=== PATIENT | male | born 1965 | race Caucasian/White ===

== ENCOUNTER 2018-04-13 02:38 | Inpatient (IN) | payer OTHER, MEDICAID ==
[~2018-04-13] VITALS: Ht 182.9 cm; Wt 102.2 kg
[~2018-04-13 02:38] MED LIST: ATOR20TA PO; CARV3.1212 PO; LISI-170 PO; TICA90TA PO
[2018-04-13] MEDS ORDERED: ASPI-13 PO (03:20)
[2018-04-13 03:24] LABS: BASOPHILS # (AUTO) 0.04 x10^3/uL (0-0.1); BASOPHILS % (AUTO) 0 % (0-1); EOSINOPHILS # (AUTO) 0.28 x10^3/uL (0-0.4); EOSINOPHILS % (AUTO) 3 % (1-7); LYMPHOCYTES # (AUTO) 2.87 x10^3/uL (1-3.4); LYMPHOCYTES % (AUTO) 28 % (22-44); MD NO; MEAN CORPUSCULAR HEMOGLOBIN 31.2 pg (27.5-34.5); MEAN CORPUSCULAR HGB CONC 34.2 g/dL (33.2-36.2); MEAN CORPUSCULAR VOLUME 91.1 fL (81-97); MEAN PLATELET VOLUME 9.3 fL (7.4-10.4); MONOCYTES % (AUTO) 8 % (2-9); NEUTROPHILS # (AUTO) 6.14 x10^3/uL (1.8-6.8); NEUTROPHILS % (AUTO) 61 % (42-75); PLATELET COUNT 283 x10^3/uL (130-400); RED BLOOD COUNT 4.82 x10^6/uL (4.38-5.82); RED CELL DISTRIBUTION WIDTH 14.2 % (9.4-14.8)
[2018-04-13] MEDS ORDERED: SODIUM CHLORIDE FLUSH 10ML SYR IVF ONE (03:30)
[2018-04-13 03:33] LABS: ALANINE AMINOTRANSFERASE 44 U/L (12-78); ALBUMIN 3.6 g/dL (3.4-5.0); ANION GAP 8 mmol/L (5-15); CALCIUM 8.3 mg/dL (8.5-10.1); CHLORIDE 109 mmol/L (98-107); CREATININE 1.28 mg/dL (0.7-1.3)
[2018-04-13 03:38] LABS: ALKALINE PHOSPHATASE 91 U/L (45-117); BILIRUBIN,TOTAL 0.4 mg/dL (0.2-1.0); TOTAL PROTEIN 7.3 g/dL (6.4-8.2); TROPONIN I < 0.015 ng/mL (0.000-0.045)
[2018-04-13] MEDS ORDERED: SODIUM CHLORIDE 0.9% 1,000 ML IV SCH (04:09)
[2018-04-13] MEDS ORDERED: ONDANSETRON 2MG/ML, 2ML IVPush PRN (04:30)
[2018-04-13] MEDS ORDERED: ONDANSETRON ODT 4 MG PO PRN (04:30)
[2018-04-13] MEDS ORDERED: hydrALAzine 20 MG/ML, 1ML IVPush PRN (04:30)
[2018-04-13] MEDS ORDERED: POLYETHYLENE GLYCOL 17 GM PACKET PO PRN (04:30)
[2018-04-13] MEDS ORDERED: ACETAMINOPHEN 325 MG TABLET PO PRN (04:30)
[2018-04-13] MEDS ORDERED: morphine SULFATE 10 MG/ML, 1ML IVPush PRN (04:30)
[2018-04-13] MEDS ORDERED: NITROGLYCERIN 0.4 MG BOTTLE (25 TABS) SL PRN (04:30)
[2018-04-13 05:03] VITALS: BP 114/78
[2018-04-13] MEDS ORDERED: OMEP-110 PO (05:09)
[2018-04-13 07:48] VITALS: BP 103/64
[2018-04-13] MEDS ORDERED: LISINOPRIL 20 MG TABLET PO SCH (09:00)
[2018-04-13] MEDS ORDERED: ASPIRIN 325 MG TABLET EC PO SCH (09:00)
[2018-04-13] MEDS ORDERED: CARVEDILOL 3.125 MG TABLET PO SCH (09:00)
[2018-04-13 09:59] LABS: TROPONIN I < 0.015 ng/mL (0.000-0.045)
[2018-04-13] MEDS ORDERED: REGADENOSON 0.4 MG/5 ML SYRINGE ONE (10:43)
[2018-04-13 14:08] VITALS: BP 107/71
[2018-04-13] MEDS ORDERED: ATOR40TA78 PO (16:59)
[2018-04-13] MEDS ORDERED: ENOXAPARIN 40 MG/0.4 ML SQ SCH (17:00)
== END 2018-04-13 18:12 | disposition home or self-care (01) | DRG 392 ==
LOC: ED 02:51 → EDIP 03:50 → 5SO 05:00
PROVIDERS: ADMIT Hospitalist; ATTEND Hospitalist
DX: K21.9 Gastro-esophageal reflux disease without esophagitis (principal); D72.829 Elevated white blood cell count, unspecified; I25.2 Old myocardial infarction; R07.89 Other chest pain; I10 Essential (primary) hypertension; I25.10 Atherosclerotic heart disease of native coronary artery without angina pectoris; E78.5 Hyperlipidemia, unspecified; F17.290 Nicotine dependence, other tobacco product, uncomplicated; E66.01 Morbid (severe) obesity due to excess calories; Z95.5 Presence of coronary angioplasty implant and graft; Z68.30 Body mass index [BMI] 30.0-30.9, adult; Z91.19 Patient's noncompliance with other medical treatment and regimen
CPT/HCPCS: 36415; 71046; 78452; 80053; 84484; 85025; 93005; 93017; 99285; G0378; J2785; A9502; C9898; J7030

== ENCOUNTER 2020-12-25 12:28 | Observation (INO) | payer BC, MEDICAID, OTHER ==
[~2020-12-25] VITALS: Ht 182.9 cm; Wt 107.3 kg
[~2020-12-25 12:28] MED LIST changes: +ASPI-13 PO; +ATOR40TA78 PO; +OMEP-110 PO
[2020-12-25] MEDS ORDERED: NITR0.3T5 SL (13:00)
--- NOTE | 2020-12-25 13:05 | NUR ---
PT PLACED ON ALL ROOM MONITORING. PT DENIES CP AT THIS TIME. PT STATES PAIN ON/OFF SINCE YESTERDAY AND RESEMBLANT OF PREVIOUS CP WITH [place] IN 2013. PT STATES "WINDED" AND HAVING EXERTIONAL SOB FOR A COUPLE MONTHS. 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 FLIGHT HOME ON MONDAY, SOB AND "WINDED" DURING TRIP, PT TOOK ONE NTG DURING FLIGHT. PT STATES PAIN STARTED YESTERDAY TO L CHEST AND RADIATED DOWN L SHOULDER TO FOREARM AFTER WALKING NINE FLIGHTS OF STAIRS. CP FROM YESTERDAY RESOLVED WITH REST. ONSET AGAIN THIS AM WITH RESOLUTION DURING DRIVE HERE. 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
--- NOTE | 2020-12-25 13:27 | NUR ---
DR HEADLEY IN TO SEE PT.
[2020-12-25] MEDS ORDERED: ASPIRIN 81 MG TABLET CHEW ONE (13:42)
[2020-12-25 13:47] LABS: BASOPHILS % (AUTO) 1 % (0-1); EOSINOPHILS % (AUTO) 0 % (1-7); LYMPHOCYTES % (AUTO) 11 % (22-44); MEAN PLATELET VOLUME 8.9 fL (7.4-10.4); MONOCYTES % (AUTO) 6 % (2-9); NEUTROPHILS % (AUTO) 82 % (42-75); PLATELET COUNT 231 x10^3/uL (130-400); RED BLOOD COUNT 4.59 x10^6/uL (4.38-5.82); RED CELL DISTRIBUTION WIDTH 13.9 % (9.4-14.8)
--- NOTE | 2020-12-25 13:50 | NUR ---
PT GIVEN ASA PER ERP ORDER. HOLD ON PAIN MEDICATION AT THIS TIME, PT CONTINUES TO SAY NO CP, NO N/V. REPEAT EKG COMPLETED. CALL LIGHT WITHIN REACH, FAMILY AT BS.
[2020-12-25 13:58] LABS: ALBUMIN 3.1 g/dL (3.4-5.0); ANION GAP 7 mmol/L (5-15); CALCIUM 8.7 mg/dL (8.5-10.1); CHLORIDE 103 mmol/L (98-107); CREATININE 1.07 mg/dL (0.7-1.3)
[2020-12-25] MEDS ORDERED: ASPIRIN 81 MG TABLET CHEW PO ONE (14:00)
[2020-12-25] MEDS ORDERED: MORPHINE SULFATE 4 MG/ML, 1ML IVPush PRN (14:00)
[2020-12-25] MEDS ORDERED: NITROGLYCERIN SINGLE TAB 0.4 MG SL PRN (14:00)
[2020-12-25] MEDS ORDERED: ONDANSETRON 2MG/ML, 2ML IVPush ONE (14:00)
[2020-12-25 14:02] LABS: TROPONIN I < 0.015 ng/mL (0.000-0.045)
--- NOTE | 2020-12-25 14:09 | NUR ---
BEDSIDE REPORT FROM YONNY. PT RESTING IN BED. VSS. ADAN.
[2020-12-25] MEDS ORDERED: morphine SULFATE 10 MG/ML, 1ML IVPush PRN (15:00)
[2020-12-25] MEDS ORDERED: ONDANSETRON ODT 4 MG PO PRN (15:00)
[2020-12-25] MEDS ORDERED: ONDANSETRON 2MG/ML, 2ML IVPush PRN (15:00)
[2020-12-25] MEDS ORDERED: POLYETHYLENE GLYCOL 17 GM PACKET PO PRN (15:00)
[2020-12-25] MEDS ORDERED: SENNA/DOCUSATE TABLET PO PRN (15:00)
[2020-12-25] MEDS ORDERED: ACETAMINOPHEN 325 MG TABLET PO PRN (15:00)
[2020-12-25] MEDS: ENOXAPARIN 40 MG/0.4 ML SQ SCH (15:30)
--- NOTE | 2020-12-25 15:46 | NUR ---
report to Mai mercado.
[2020-12-25 19:13] LABS: TROPONIN I < 0.015 ng/mL (0.000-0.045)
[2020-12-25 20:00] VITALS: BP 116/79
[2020-12-25] MEDS ORDERED: ATORVASTATIN 40 MG TABLET PO SCH (21:00)
[2020-12-25] MEDS: CARVEDILOL 3.125 MG TABLET PO SCH (22:00)
[2020-12-26 00:14] VITALS: BP 117/79
[2020-12-26 01:22] LABS: TROPONIN I < 0.015 ng/mL (0.000-0.045)
[2020-12-26 05:11] LABS: BASOPHILS % (AUTO) 1 % (0-1); EOSINOPHILS % (AUTO) 0 % (1-7); LYMPHOCYTES % (AUTO) 14 % (22-44); MEAN CORPUSCULAR HEMOGLOBIN 31.3 pg (27.5-34.5); MEAN CORPUSCULAR HGB CONC 34.6 g/dL (33.2-36.2); MEAN PLATELET VOLUME 9.2 fL (7.4-10.4); MONOCYTES % (AUTO) 7 % (2-9); NEUTROPHILS % (AUTO) 79 % (42-75); PLATELET COUNT 216 x10^3/uL (130-400); RED BLOOD COUNT 4.41 x10^6/uL (4.38-5.82); RED CELL DISTRIBUTION WIDTH 14.2 % (9.4-14.8)
[2020-12-26 05:12] LABS: ALANINE AMINOTRANSFERASE 156 U/L (12-78); ANION GAP 8 mmol/L (5-15); CALCIUM 8.4 mg/dL (8.5-10.1); CHLORIDE 106 mmol/L (98-107); CHOLESTEROL, TOTAL 111 mg/dL (140-239); CREATININE 0.96 mg/dL (0.7-1.3)
[2020-12-26 05:15] LABS: ALKALINE PHOSPHATASE 118 U/L (45-117); BILIRUBIN,TOTAL 0.4 mg/dL (0.2-1.0); CHOL/HDL RATIO 2.2; HDL CHOL % 45 % (26-37); HDL CHOLESTEROL (DIRECT) 50 mg/dL (40-60); LDL CHOLESTEROL,CALCULATED 40 mg/dL (54-169); LDL/HDL RATIO 0.8 (0.5-3.0); TOTAL PROTEIN 6.1 g/dL (6.4-8.2); TRIGLYCERIDES 103 mg/dL (50-200); VLDL CHOLESTEROL 21 mg/dL (0-25)
[2020-12-26 06:50] VITALS: BP 128/83
[2020-12-26] MEDS ORDERED: REGADENOSON 0.4 MG/5 ML SYRINGE ONE (07:01)
[2020-12-26] MEDS ORDERED: LISINOPRIL 20 MG TABLET PO SCH (09:00)
[2020-12-26] MEDS ORDERED: ASPIRIN 325 MG TABLET EC PO SCH (09:00)
[2020-12-26] MEDS ORDERED: OMEPRAZOLE 20 MG CAPSULE.DR PO SCH (09:00)
[2020-12-26 11:29] VITALS: BP 137/91
[2020-12-26] MEDS: CARVEDILOL 3.125 MG TABLET PO SCH (11:30)
[2020-12-26 12:58] VITALS: BP 123/76
[2020-12-26] MEDS: ENOXAPARIN 40 MG/0.4 ML SQ SCH (15:30)
[2020-12-26] MEDS ORDERED: METF500T PO (16:10)
[2020-12-26 16:23] LABS: MICROSCOPIC NOT IND
== END 2020-12-26 18:39 | disposition home or self-care (01) ==
LOC: ED 15:54 → INTOOBSV 16:04 → 5SO 16:04
PROVIDERS: ADMIT Family Medicine; ATTEND Family Medicine
DX: R07.89 Other chest pain (principal); I25.10 Atherosclerotic heart disease of native coronary artery without angina pectoris; D72.829 Elevated white blood cell count, unspecified; E11.65 Type 2 diabetes mellitus with hyperglycemia; K21.9 Gastro-esophageal reflux disease without esophagitis; E66.9 Obesity, unspecified; R06.00 Dyspnea, unspecified; E78.5 Hyperlipidemia, unspecified; I25.2 Old myocardial infarction; F17.290 Nicotine dependence, other tobacco product, uncomplicated; I10 Essential (primary) hypertension; R79.89 Other specified abnormal findings of blood chemistry; E88.09 Other disorders of plasma-protein metabolism, not elsewhere classified; R74.01 Elevation of levels of liver transaminase levels; Z68.32 Body mass index [BMI] 32.0-32.9, adult; Z79.82 Long term (current) use of aspirin; Z79.899 Other long term (current) drug therapy; Z95.5 Presence of coronary angioplasty implant and graft
CPT/HCPCS: 36415; 71045; 78452; 80048; 80053; 80061; 81003; 82040; 83036; 83880; 84484; 85025; 85379; 93005; 93017; 93306; 99291; A9502; G0378; J2785